=== PATIENT | male | born 1955 | race Caucasian/White ===

== ENCOUNTER 2022-08-29 15:54 | Emergency (ER) | payer MEDICARE, MEDICAID, SELFPAY ==
[2022-08-29] VITALS (14 sets, daily range): BP systolic 96–98; BP diastolic 49–63; PULSE 91–133; RESP 14–22; TEMP 36.6; O2SAT 97–100
--- NOTE | ~2022-08-29 | XR_ITS ---
EXAMINATION: XR chest 1V portable INDICATION: Weakness and hypoxia TECHNIQUE: Portable AP chest at 1629 hours COMPARISON: None available FINDINGS: The lungs are free of acute opacities. No pleural effusion or pneumothorax. The cardiac med iastinal silhouette is normal. IMPRESSION: 1. No acute cardiopulmonary abnormality. Reviewed, dictated and finalized at location L.
--- NOTE | 2022-08-29 16:04 | ECG_ITS ---
Measurements Intervals [place] Rate: 105 P: HI: 0 QRS: 73 QRSD: 93 T: 66 QT: 341 QTc: 451 Interpretive Statements ATRIAL FIBRILLATION WITH RAPID VENTRICULAR RESPONSE ABNORMAL RHYTHM ECG NO PREVIOUS ECG AVAILABLE FOR COMPARISON Electronically Signed On 08-30-2022 9:35:05 CDT by Santana Box M.D.
--- NOTE | 2022-08-29 16:21 | ED.WEAKNESS ---
HPI - Weakness General Chief complaint: Weakness Stated complaint: weakness Time Seen by Provider: 08/29/22 16:21 Source: patient and family Mode of arrival: ambulatory Limitations: no limitations History of Present Illness HPI Narrative: Patient is a 66-year-old male with history of hypertension, hyperlipidemia, COPD, atrial fibrillation on chronic anticoagulation presenting to the emergency department for evaluation of generalized weakness. Patient reports feeling weak after cleaning out his car today, patient states that he drank a significant mount of alcohol. Patient reports at least 3 shots of vodka. Patient does have a history of alcohol abuse, states that he does not drink daily. Denies history of alcohol withdrawal. Patient denies any pain at this point. Reports that he felt slightly lightheaded after cleaning out his car but did not pass out. Patient denies any focal weakness or numbness. No headache, vision changes. He denies nausea, vomiting, chest pain, shortness of breath. Patient denies recent medication changes or illness. Patient's is currently hospitalized after repair of abdominal aortic aneurysm. Pt denies changes in medication. He has been compliant with all medications, no missed doses. Related Data Allergies Allergy/AdvReac Type Severity Reaction Status Date / Time SULFA Allergy Unknown Uncoded 10/26/16 07:35 Review of Systems Review of Systems: CONSTITUTIONAL: Denies fever, chills, or sweats. EYES: Denies visual changes, redness, or discharge. ENT: Denies rhinorrhea, congestion, sore throat, or otalgia. CARDIOVASCULAR: Denies chest pain, palpitations, or edema. RESPIRATORY: Denies cough or dyspnea. GASTROINTESTINAL: Denies abdominal pain, nausea, vomiting, or diarrhea. GENITOURINARY: Denies dysuria or hematuria. SKIN: Denies rash or itching. MUSCULOSKELETAL: Denies back pain, joint pain, or myalgia. NEUROLOGIC: Denies headache, numbness, reports generalized weakness, lightheadedness. [facility] Past Medical History Medical History (Updated 08/29/22 @ 18:34 by Heidi Herring MD) Alcohol abuse Atrial fibrillation COPD (chronic obstructive pulmonary disease) Depression Hyperlipidemia Hypertension Social History Social History (Updated 08/29/22 @ 16:51 by Heidi Herring MD) Smoking status: Current every day smoker Alcohol intake: current Substance use: never Living arrangements: with family Gender identity (if verbalized by the patient): Male Exam Narrative: GENERAL: Awake, thin, unwell appearing, intoxicated HEAD: Normocephalic, atraumatic. EYES: PERRLA and EOMI. ENT: Nares clear, no rhinorrhea or epistaxis. Mucous membranes dry. NECK: Supple. CHEST: No respiratory distress, breathing even and non labored HEART: Regular rate, sinus rhythm ABDOMEN:Non distended, non tender with palpation of all 4 quadrants, no rebound, rigidity or guarding EXTREMITIES: Normal range of motion. No edema. SKIN: Warm, dry, no rash. NEURO:No focal deficits. Alert and oriented x3 Course Vital Signs Vital signs: Vital Signs Temperature 36.6 C 08/29/22 15:55 Pulse Rate 118 H 08/29/22 15:55 Respiratory Rate 16 08/29/22 15:55 Blood Pressure 96/63 L 08/29/22 15:55 Pulse Oximetry 98 08/29/22 15:55 Oxygen Delivery Room Air 08/29/22 15:55 Temperature 36.6 C 08/29/22 15:55 Pulse Rate 128 H 08/29/22 18:30 Respiratory Rate 18 08/29/22 18:30 Blood Pressure 96/49 L 08/29/22 17:35 Pulse Oximetry 100 08/29/22 18:00 Oxygen Delivery Room Air 08/29/22 15:55 MDM - Weakness MDM Narrative Medical decision making narrative: Medical decision making narrative: -Presentation: Patient presenting for evaluation of lightheadedness, improving at the time of reassessment. Patient with history of atrial fibrillation and is chronically anticoagulated, currently in A-fib but does report significant mount of alcohol use today as is in the hospital. Patient de
[2022-08-29] MEDS: SODIUM CHLORIDE 0.9% IV 1,000 ML 999 ML IV CONT (16:34)
[2022-08-29 16:38] LABS: Basophils Percent Auto 0.6 % (0.2-1.2); Eosinophils Absolute Auto 0.1 K/mm3 (0-0.3); Eosinophils Percent Auto 2.6 % (0-4.4); Hematocrit 33.3 % (42.0-52.0); Immature Granulocyte Absolute 0.01 K/mm3 (0.00-0.031); Immature Granulocyte Percent A 0.3 % (0-0.5); Lymphocytes Absolute Auto 1.63 K/mm3 (0.9-3.2); Lymphocytes Percent Auto 46.4 % (18.3-44.2); Mean Corpuscular Hemoglobin 30.6 pg (26-34); Mean Corpuscular Volume 92.8 fl (80-100); Mean Platelet Volume 9.9 fl (7.4-10.4); Monocytes Absolute Auto 0.3 K/mm3 (0.1-0.6); Monocytes Percent Auto 9.7 % (2.6-8.5); Neutrophils Absolute Auto 1.4 K/mm3 (1.3-6.7); Neutrophils Percent Auto 40.4 % (45.5-73.1); Platelet Count Result 167 k/mm3 (150-375); Red Blood Count 3.59 M/mm3 (4.6-6.20); Red Cell Distribution Width 13.4 % (11.5-14.5); White Blood Count 3.5 K/mm3 (4.5-10.0)
[2022-08-29 16:44] LABS: INR 1.2; Prothrombin Time 14.9 Seconds (11.1-14.7)
[2022-08-29 16:45] LABS: Partial Thromboplastin Time 31.6 SECONDS (22.3-36.8)
[2022-08-29 16:48] LABS: Lactic Acid Reflex 2.7 mmol/L (0.7-2.0)
[2022-08-29 16:53] LABS: Alanine Aminotransferase 25 U/L (6-50); Albumin Level 3.8 g/dL (3.5-5.1); Alkaline Phosphatase 58 U/L (38-126); Anion Gap 8 mmol/L (8-16); Aspartate Amino Transferase 35 U/L (17-59); Bilirubin,Total 0.4 mg/dL (0.2-1.3); Blood Urea Nitrogen 16 mg/dL (9-20); Calcium 8.6 mg/dL (8.4-10.2); Carbon Dioxide 25 mmol/L (22-30); Chloride 104 mmol/L (98-107); Estimated CRCL calculation 38 ml/min; Estimated Glomerular Filt Rate 60; Glucose 119 mg/dL (65-110); Potassium 3.6 mmol/L (3.4-5.0); Sodium 137 mmol/L (137-145)
[2022-08-29 17:01] LABS: Troponin I < 0.012 ng/mL (0.000-0.034)
[2022-08-29 18:07] LABS: Ethanol 15 mg/dL (<10); Lactic Acid Reflex 2.1 mmol/L (0.7-2.0)
[2022-08-29 18:16] LABS: Magnesium 1.8 mg/dL (1.6-2.3); Phosphorus 2.4 mg/dL (2.5-4.5)
[2022-08-29 18:29] LABS: Troponin I < 0.012 ng/mL (0.000-0.034)
[2022-08-29 19:01] LABS: Amphetamine Screen Urine Negative (Negative); Barbiturate Screen Urine Negative (Negative); Benzodiazepines Screen Urine Negative (Negative); Cannabinoid Screen Urine Positive (Negative); Cocaine Screen Urine Negative (Negative); Methadone Screen Urine Negative (Negative); Opiate Screen Urine Positive (Negative); Phencyclidine Screen Urine Negative (Negative)
[2022-08-29 19:30] LABS: Reflex Lactic Acid Yes or No Add Lactic
== END 2022-08-29 18:50 | disposition home or self-care (01) ==
PROVIDERS: Emergency Provider Emergency Medicine
DX: E86.0 Dehydration (principal); I48.91 Unspecified atrial fibrillation; F10.90 Alcohol use, unspecified, uncomplicated; Y90.0 Blood alcohol level of less than 20 mg/100 ml; F17.210 Nicotine dependence, cigarettes, uncomplicated; J44.9 Chronic obstructive pulmonary disease, unspecified; F32.A Depression, unspecified; E78.5 Hyperlipidemia, unspecified; I10 Essential (primary) hypertension
CPT/HCPCS: 36415; 71045; 80053; 80307; 83605; 83735; 84100; 84443; 84484; 85025; 85610; 85730; 93005; 96360; 99283; J7030